=== PATIENT | female | born 1975 | race Caucasian/White ===

== ENCOUNTER 2018-07-01 05:25 | Day surgery (SDC) | payer BC ==
[~2018-07-01] VITALS: Ht 157.5 cm; Wt 51.7 kg
[2018-07-01] MEDS ORDERED: POLYMYXIN 500,000/BACIT.10,000 UNITS in NS IRR 1 L IR ONE (07:19)
[2018-07-01] MEDS ORDERED: LR 1,000 ML IV SCH (10:53)
[2018-07-01] MEDS ORDERED: METOCLOPRAMIDE HCL 10 MG/2 ML VIAL IVP PRN (11:00)
[2018-07-01] MEDS ORDERED: MORPHINE 4 MG/ML INJ. SYRINGE IVP PRN ×3 (11:00)
[2018-07-01] MEDS ORDERED: NS 1000 ML IV.SOLN IV ONE (11:10)
[2018-07-01] MEDS ORDERED: ONDANSETRON HCL 4 MG/2 ML VIAL ONE (11:10)
[2018-07-01] MEDS ORDERED: fentaNYL CITRATE 250 MCG/5 ML AMP ONE (11:10)
[2018-07-01] MEDS ORDERED: ROCURONIUM BROMIDE 10 MG/ML (ZEMURON) ONE (11:10)
[2018-07-01] MEDS ORDERED: BUPIVACAINE /EPINEPHRINE/PF 0.5% 30 ML VIAL INJ ONE (11:10)
[2018-07-01] MEDS ORDERED: DEXTROSE 50% JECT 50 ML DISP.SYRIN ONE (11:10)
[2018-07-01] MEDS ORDERED: LR 1,000 ML IV.SOLN IV ONE (11:10)
[2018-07-01] MEDS ORDERED: PROPOFOL 200MG/ 20ML VIAL (DIPRIVAN) IV ONE (11:10)
[2018-07-01] MEDS ORDERED: KETOROLAC TROMETHAMINE 30 MG VIAL ONE (11:10)
[2018-07-01] MEDS ORDERED: NS IRRIG SOLN 1000 ML IR ONE (11:10)
[2018-07-01] MEDS ORDERED: FUROSEMIDE 20 MG/2 ML VIAL ONE (11:10)
[2018-07-01] MEDS ORDERED: CLINDAMYCIN PHOSPHATE 600 mg/50mL D5W IV ONE (11:10)
[2018-07-01] MEDS ORDERED: MIDAZOLAM HCL 5 MG/ML VIAL (VERSED) IV ONE (11:10)
[2018-07-01] MEDS ORDERED: SEVOFLURANE 15 MIN GAS INH ONE (11:10)
[2018-07-01] MEDS ORDERED: METOCLOPRAMIDE HCL 10 MG/2 ML VIAL ONE (12:01)
[2018-07-01] MEDS ORDERED: KETOROLAC TROMETHAMINE 30 MG VIAL IVP ONE (14:00)
[2018-07-01] MEDS ORDERED: ONDANSETRON HCL 4 MG/2 ML VIAL IVP PRN (14:00)
[2018-07-01] MEDS ORDERED: HYDROcodone/ACETAMIN 5-325 MG TAB (NORCO/ VICODIN) PO PRN (14:00)
[2018-07-01] MEDS ORDERED: OXYCODONE/ACETAMINOPHEN 5-325 TABLET PO PRN ×2 (14:00)
[2018-07-01] MEDS ORDERED: OXYCODONE/ACETAMINOPHEN 5-325 TABLET ONE (14:14)
[2018-07-01 14:45] VITALS: BP_SYST 96
== END 2018-07-01 14:45 | disposition home or self-care (01) ==
LOC: SMU 05:25 → SDS 05:25
PROVIDERS: ATTEND Specialist
DX: D25.9 Leiomyoma of uterus, unspecified (principal); G43.909 Migraine, unspecified, not intractable, without status migrainosus; Z98.890 Other specified postprocedural states; Z88.0 Allergy status to penicillin; Z79.899 Other long term (current) drug therapy; N81.11 Cystocele, midline
CPT/HCPCS: 58552; 88307; C1727; C1781; J1885; J1940; J2250; J2405; J2704; J2765; J3010; J3490 ×2; J7030; J7120; E0190